=== PATIENT | female | born 1955 | race Caucasian/White ===

== ENCOUNTER 2018-04-22 07:43 | Day surgery (SDC) | payer OTHER ==
[~2018-04-22] VITALS: Ht 154.9 cm; Wt 72.7 kg
[2018-04-22] VITALS (16 sets, daily range): BP systolic 92–180; BP diastolic 41–88; PULSE 56–77; RESP 10–21; Ht 154.9 cm; Wt 72.7 kg
[~2018-04-22 07:43] MED LIST: CEFAZOLIN 2 GM/50 ML (PMX) 50 ML IVPB SCH
[2018-04-22] MEDS ORDERED: NORT10CA2 PO (08:18)
--- NOTE | 2018-04-22 08:43 | PREAC ---
Date/Time of Note Date/Time of Note DATE: 04/22/18 TIME: 08:40 Anesthesia Eval and Record Evaluation Time Pre-Procedure Interview DATE: 04/22/18 TIME: 08:40 Age 62 Sex female NPO: 8 hrs Preoperative diagnosis RIGHT CTS, TRIGGER FINGER Planned procedure RIGHT CARPAL TUNNEL RELEASE, MEDIAN NERVE AND TRIGGER FINGER RELEASE Past Medical History Past Medical History: Includes Cardio: Dyslipidemia Neuro: Other (LEFT LEG NUMBNESS-ON NORTRIPTYLLINE) Surgery & Anesthesia Issues No known issue Meds Anticoagulation: No Beta Stevenson within 24 hr: No Reason Beta Stevenson not given: Pt. not on B-Stevenson Reported Medications Nortriptyline Hcl* (Nortriptyline Hcl*) 10 Mg Capsule, 10 MG PO HS, CAP 04/22/18 Current Medications Cefazolin Sodium/ Dextrose 50 ml @ 100 mls/hr PREOP IVPB ; Start 04/22/18 at 06:00; Stop 04/22/18 at 18:00 Meds reviewed: Yes Allergies Coded Allergies: pravastatin (Unverified Allergy, Unknown, 04/21/18) Allergies Reviewed: Yes Labs/Studies Labs Reviewed: Reviewed by anesthesiologist test: N/A Studies: ECG, CXR Pre-procedure Exam Airway: Adequate mouth opening, Adequate thyromental dist Mallampati: Mallampati II Teeth: Normal Lung: Normal Heart: Normal ASA Physical Status ASA physical status: 2 Emergency: None Planned Anesthetic General/MAC: MAC Planned Pain Management Local by surgeon Pre-operative Attestations Prior to commencing anesthesia and surgery, the patient was re-evaluated, there was verification of: *The patient's identity *The results of appropriate recent lab work and preoperative vital signs *The above evaluation not changing prior to induction *Anesthetic plan, risk benefits, alternative and complications discussed with patient/family; questions answered; patient/family understands, accepts and wishes to proceed. HADLEY ARTEAGA Apr 22, 2018 08:43
[2018-04-22] MEDS ORDERED: LIDOCAINE 2% (SDV) 5 ML INJ ONE (08:49)
[2018-04-22] MEDS ORDERED: PROPOFOL 20 ML ONE (08:50)
[2018-04-22] MEDS ORDERED: FENTAnyl 50 MCG/ML VIAL ONE (08:50)
[2018-04-22] MEDS ORDERED: CEFAZOLIN 1 GM INJ ONE (08:50)
[2018-04-22] MEDS ORDERED: POLYMYXIN/BACITRACIN 1L IRRIG ONE (10:08)
[2018-04-22] MEDS ORDERED: BUPIVACAINE 0.25% (MPF) 30 ML INJ ONE (10:08)
--- NOTE | 2018-04-22 10:13 | HPN ---
Date/Time of Note Date/Time of Note DATE: 04/22/18 TIME: 10:13 Interval H&P Admission Note Pt. seen H&P reviewed: No system changes COLE WANG MD Apr 22, 2018 10:13
[2018-04-22] MEDS ORDERED: LABETALOL HCL 20MG INJ ONE (10:22)
[2018-04-22] MEDS ORDERED: ONDANSETRON 4 MG INJ IV PRN (11:00)
[2018-04-22] MEDS ORDERED: OXYCODONE/ACETAMINOPHEN (5/325) TAB PO PRN ×2 (11:00)
[2018-04-22] MEDS ORDERED: MEPERIDINE 25 MG INJ IV PRN (11:00)
[2018-04-22] MEDS ORDERED: LABETALOL HCL 20MG INJ IV PRN (11:00)
[2018-04-22] MEDS ORDERED: FENTAnyl 50 MCG/ML VIAL IV PRN ×3 (11:00)
--- NOTE | 2018-04-22 11:12 | SIPON ---
Date/Time of Note Date/Time of Note DATE: 04/22/18 TIME: 11:11 Operative Report Preoperative Diagnosis Right carpal tunnel syndrome, trigger finger middle and ring. Postoperative Diagnosis Right carpal tunnel syndrome, trigger finger middle and ring Operation/Procedure Performed Right open carpal tunnel release, release of trigger fingers middle and ring. 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
--- NOTE | 2018-04-22 11:22 | PAC ---
Date/Time of Note Date/Time of Note DATE: 04/22/18 TIME: 11:21 Post-Anesthesia Notes Post-Anesthesia Note Last documented vital signs bp 179/73 hr 60 spO2 95% TEMP 97.8 RR 16 Vital Signs Date Temp Pulse Resp B/P (MAP) Pulse Ox O2 O2 Flow FiO2 Time Delivery Rate 04/22/18 97.9 77 16 145/84 100 Room Air 08:58 (104) Activity: WNL Respiratory function: WNL Cardiovascular function: WNL Mental status: Baseline Pain reasonably controlled: Yes Hydration appropriate: Yes Nausea/Vomiting absent: Yes HADLEY ARTEAGA Apr 22, 2018 11:22
[2018-04-22] MEDS ORDERED: hydrALAzine 20 MG INJ ONE (11:24)
[2018-04-22] MEDS ORDERED: hydrALAzine 20 MG INJ IV PRN (11:30)
--- NOTE | 2018-04-26 12:49 | OPR ---
DATE OF OPERATION: 04/22/2018 SURGEON: Cole Salinas MD [employer] TECHNICIAN: None. ANESTHESIA: MAC with local anesthetic. PREOPERATIVE DIAGNOSES: 1. Right carpal tunnel syndrome, severe. 2. Right middle trigger finger. 3. Right ring trigger finger. POSTOPERATIVE DIAGNOSES: 1. Right carpal tunnel syndrome, severe. 2. Right middle trigger finger. 3. Right ring trigger finger. PROCEDURES: 1. Open carpal tunnel release, right. 2. Release of the middle trigger finger. 3. Release of ring trigger finger. 4. Injection of local anesthetic. 5. Application of short arm splint. TOURNIQUET TIME: 70 minutes at 225 mmHg. ESTIMATED BLOOD LOSS: Minimal. INDICATION: The patient who has a significant and severe carpal tunnel syndrome on the right side. 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 Given the results of EMG nerv e conduction study which shows significant compression of the median nerve at the carpal tunnel as we ll as significant atrophy of her thenar musculature and her symptoms, recommendation for her was for carpal tunnel release to prevent additional atrophy, weakness and sensory loss. There is no promise of temple of muscle mass or sensory function. Additionally, she has triggering fingers for whic h she has failed conservative treatment and elected to undergo release of these structures. The risk s of surgery including pain, bleeding, infection, scar, damage to neurovascular structures, failure o f surgery to work, blood clots of the upper extremities, lower extremity, pulmonary embolism, risk of anesthesia, were explained to the patient. She elected to proceed. DESCRIPTION OF PROCEDURE: The patient was marked and identified in preoperative holding, brought to the operating room and placed supine on a regular operating table, placed under sedation. A tourniqu et was placed high on the arm. Her arm was prepped and draped in the usual sterile fashion. Sequent ial compressive devices were placed on bilateral lower extremities. Antibiotics were dosed and given to her and once anesthesia was confirmed, injection of local anesthetic was performed and an incisio n was made over the palmar wrist crease with retraction used to dissect down to the transverse carpal ligament. This ligament was incised and the median nerve was identified using [place] for protection. The distal and proximal aspect of the transverse carpal ligament was further dissected until it was opened completely. The palmar fascia was identified and this was released as well. Given the longs tanding nature of this carpal tunnel syndrome, the motor branch of the median nerve heading to the th enar eminence was identified and this is dissected out to free of any scar and adhesions in order to promote some form of temple of this nerve function. Attention was turned to the triggering fing ers for which incisions were made within the skin creases over the preston of the middle finger and in the ring finger and sequentially each one of these was carried out. A longitudinal incision was mad e over the preston until it was released. The tourniquet was released. Hemostasis was achieved with pressure and closure was performed with Monocryl for the deep layer and for the carpal tunnel incisio n, a Prolene suture was placed for subcuticular closure. Sterile dressing was applied as well as a s hort arm splint. The patient was awoken in the operating room in good condition. Dictated By: COLE AQUINO/RADHA Conf#: [id number] DID#: [id number]
== END 2018-04-22 13:09 | disposition home or self-care (01) ==
LOC: SDS 07:43
PROVIDERS: ATTEND Orthopaedic Surgery
DX: G56.01 Carpal tunnel syndrome, right upper limb (principal); M65.331 Trigger finger, right middle finger; M65.341 Trigger finger, right ring finger; E78.5 Hyperlipidemia, unspecified
CPT/HCPCS: 26055; 64721; J0360; J0690; J3010; Z7512; Z7610